=== PATIENT | female | born 1935 | race Caucasian/White ===

== ENCOUNTER 2020-02-26 16:44 | Inpatient (IN) | payer MEDICARE ==
--- NOTE | 2020-02-26 17:45 | RAD ---
EXAM: Single view of the chest HISTORY: Nausea and malaise for one month. Weakness COMPARISON: None FINDINGS: Single view of the chest shows a normal sized cardiomediastinal silhouette. Atheroscleroti c calcifications are seen in the aorta. Biapical pleural thickening is present. Calcified granulomas project over the left thorax. No pleural effusion or infiltrate are seen. Degenerative krystyna nges are seen in the spine. Cholecystectomy clips are seen. IMPRESSION: No evidence of acute cardiopulmonary disease
[2020-02-26 17:54] LABS: #Eosinphils 0.1 thou/uL (0.0-0.7); #Lymphocytes 0.9 thou/uL (1.20-3.40); #Monocytes 1.2 thou/uL (0.11-0.59); #Neutrophils 10.1 thou/uL (1.40-6.50); %Basophils 0.1 % (0.0-1.0); %Eosinophils 0.9 % (0.0-10.0); %Lymphocytes 7.1 % (21.0-51.0); %Monocytes 10.1 % (0.0-10.0); %Neutrophils 81.8 % (42.0-75.0); Hemoglobin 14.4 g/dL (12.0-16.0); Mean Corpuscular HGB CONC 32.6 g/dL (32.0-36.0); Mean Corpuscular Hemoglobin 28.6 pg (27.0-31.0); Mean Corpuscular Volume 87.7 fL (78.0-98.0); Mean Platelet Volume 8.8 fL (7.4-10.4); Platelet Count 313 thou/uL (130-400); RBC Distribution Width 13.6 % (11.5-14.5); Red Blood Cell (RBC) Count 5.03 mill/uL (4.20-5.40); White Blood Cell (WBC) Count 12.3 thou/uL (4.8-10.8)
[2020-02-26 18:18] LABS: ALT (SGPT) 80 U/L (8-55); AST (SGOT) 79 U/L (5-34); Albumin 4.2 g/dL (3.4-4.8); Alkaline Phosphatase 108 U/L (40-110); Anion Gap 22 mmol/L (10-20); BUN (Urea Nitrogen) 74 mg/dL (9.8-20.1); Bilirubin, Total 1.1 mg/dL (0.2-1.2); Calc. Creatinine Clearance 0 mL/min (70-130); Carbon Dioxide 24 mmol/L (23-31); Chloride 93 mmol/L (98-107); Estimated GFR-MDRD 21; Globulin 3.6 g/dL (2.4-3.5); Glucose 153 mg/dL (83-110); Lipase 126 U/L (8-78); Potassium 5.9 mmol/L (3.5-5.1); Protein, Total 7.8 g/dL (6.0-8.3); Sodium 133 mmol/L (136-145)
[2020-02-26] MEDS ORDERED: Ondansetron PF 4 MG/2 ML Vial ONE (18:18)
[2020-02-26] MEDS ORDERED: Morphine 4 MG/ML VIAL ONE ×2 (18:18→19:57)
[2020-02-26 18:49] LABS: Base Excess-Venous 2.2 mmol/L (-2.0 to 3.0); Bicarbonate (HCO3v) 28.3 mmol/L (22.0-28.0); CO2 Tension (PvCO2) 47.7 mmHg (40.0-50.0); Calcium, Ionized 1.04 mmol/L (1.15-1.33); Chloride 95 mmol/L (98-107); Hemoglobin - Calc 16.5 g/dL (12.0-16.0); Potassium 6.1 mmol/L (3.5-5.1); Sodium 130 mmol/L (138-145); T. Carbon Dioxide 29.8 mmol/L (22.0-28.0); vO2 Saturation-calc 79.2 % (60.0-85.0)
[2020-02-26] MEDS ORDERED: Calcium Chloride 1 GM/10 ML Abboject SYRINGE ONE (19:36)
[2020-02-26] MEDS ORDERED: Insulin Regular 300 UNITS/3 ML VIAL ONE (19:43)
[2020-02-26] MEDS ORDERED: Dextrose 50% Abboject 50 ML SYRINGE ONE (19:44)
[2020-02-26] MEDS ORDERED: Ondansetron ODT 4 MG TAB ONE (19:44)
[2020-02-26] MEDS ORDERED: Sodium Bicarb 50 MEQ/50 ML VIAL ONE (19:44)
[2020-02-26] MEDS ORDERED: Calcium Gluconate 13.8 MEQ in Sodium Chloride 0.9% 100 ML IVPB SCH (19:45)
--- NOTE | 2020-02-26 19:55 | RAD ---
CHEST ONE VIEW: 02/26/20 HISTORY: Central line placement. COMPARISON: 02/26/20 at 5:36 p.m. FINDINGS: There is atherosclerosis of the aortic knob. Normal cardiac silhouette. Pulmonary vessels and hilum a re normal. Costophrenic angles are clear. No consolidation or mass. No acute osseous abnormalities. T here is a right sided internal jugular vascular catheter with the distal tip projecting over the righ t atrium. No pneumothorax. IMPRESSION: Interval placement of right sided internal jugular vascular catheter. No pneumothorax. POS: PPP
[2020-02-26] MEDS ORDERED: Cefepime 2 GM VIAL ONE (20:50)
[2020-02-26] MEDS ORDERED: Metoclopramide HCl 10 MG/2 ML VIAL ONE (21:17)
--- NOTE | 2020-02-26 21:19 | CT ---
ABDOMEN CT WITH CONTRAST PELVIC CT WITH CONTRAST 02/26/20 COMPARISON: None. HISTORY: Lower abdominal pain. Metastatic ovarian cancer. FINDINGS: Abdomen CT: Slightly complex right sided pleural effusion. Adjacent consolidation with atelectasis or pneumonia. Small focal opacity in the middle lobe with irregular margination measuring 0.8 cm. the lateral aspec t of this density has a somewhat more wedge shaped appearance. Focal infiltrate may be present. Normal heart size. No significant pericardial fluid. There is atherosclerosis of the visualized aorta . Limited evaluation of the solid organs by the lack of IV contrast. Left hepatic lobe cyst measures 3. 4 x 2.9 cm. Grossly, no abnormality with regards to the spleen and pancreas. There is mild hypertrophy of both adrenal glands. Gallbladder is surgically absent. Hyperdensity in the left and right renal pelvis likely represents renal calculi, measuring 0.5 cm naeem aterally. No evidence of obstructive uropathy. Gallbladder is surgically absent. There is stippling of the anterior left and right abdominal mesentery compatible with omental seeding . There is no mesenteric free air or free fluid. . Limited evaluation of the alimentary canal by the lack of oral contrast. Limited evaluation due to la ck of oral contrast. Multiple normal caliber small bowel loops. Normal ileocecal junction. Colon is d ecompressed. Anterior abdominal wall. There is an anterior abdominal right lower quadrant diverting ileostomy. No rmal appearing ileocecal junction. Normal caliber retrocecal appendix. PELVIC CT: Stranding of the presacral fat and the fat within the pelvis. Uterus is surgically absent. Urinary bladder is unremarkable. No lytic or blastic lesions in the osseous structures. IMPRESSION: 1. 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 2. No evidence of bowel obstruction. There is a diverting ileostomy in the right lower quadrant. 3. Bilateral nonobstructing intrarenal calculi. 4. Right sided pleural effusion, complex with right lower lobe and middle lobe atelectasis/pneum onia. Results of the study discussed with Dr. Banegas 02/26/20 at 8:46 p.m. Code CR POS: PPP
[2020-02-26 21:24] LABS: Bilirubin Negative (Negative); Blood, Urine Negative (Negative); Clarity Turbid (Clear); Glucose, Urine (Dipstick) 100 mg/dL (Negative); Ketone, Urine Negative (Negative); Leukocyte 25 Leu/uL (Negative); Nitrite Negative (Negative); Protein, Urine (Dipstick) 30 mg/dL (Neg-Trace); RBC/HPF 0-3 HPF (0-3); Renal Epithelial 0-3 HPF (None Seen); Specific Gravity, Urine 1.022 (1.002-1.036); Squamous Epithelial 0-3 HPF (0-3); Transitional Epithelial 0-3 HPF (None Seen); Urobilinogen Normal mg/dL (Less than 2); pH, Urine 5.5 (5.0-9.0)
[2020-02-26] MEDS ORDERED: Vancomycin 1 GM/200 ML BAG ONE (21:26)
[2020-02-26 21:32] LABS: Bacteria/HPF Rare-Few HPF (None Seen); Yeast-Budding Rare HPF (None Seen); Yeast-Hyphae Rare HPF (None Seen)
[2020-02-26] MEDS ORDERED: Communication Order-Pharmacy FS PRN (22:09)
--- NOTE | 2020-02-26 22:24 | PDOC.BPN ---
- Brief Progress Note Encounter Date: 02/26/20 [id number] HP
[2020-02-27] MEDS: Sodium Chloride 0.9% 1,000 ML IV SCH ×4 (00:20→18:08)
[2020-02-27] MEDS ORDERED: Morphine 2 MG/ML VIAL ONE (01:48)
[2020-02-27] MEDS: Morphine 2 MG/ML VIAL SLOW IVP PRN ×3 (02:15→17:00)
--- NOTE | 2020-02-27 03:32 | HP ---
CHIEF COMPLAINT: Weakness, decreased oral intake, and dehydration. HISTORY OF PRESENT ILLNESS: Ms. Gutiérrez is an 84-year-old female who was with a history of metastatic ovarian cancer, who has been recently admitted to [facility] in [place] where her Assistant Manager Trainee/Onc surgeon is present with dehydration, very poor appetite, generalized weakness, not able to get up out of bed. The patient had a recent partial colectomy with colostomy in the right lower quadrant. She has had issues with resistant leaking of bowel contents onto the abdominal wall, which caused significant erythema and discomfort. The patient also had complications of intraabdominal infection. The niece is at the bedside cannot elaborate further on this, she did have a wound VAC to her abdominal wall for a couple of weeks. The niece did not think that this was some type of fistula. No reported fever, cough, chest pain, or shortness of breath. The patient had significant malaise and generalized weakness. The surgery was sometime in January, she was transferred back there in the end of January and was admitted for 7 days according to the family and was discharged at the end of January. No other significant past medical history. Workup in the emergency room, the patient appears dehydrated, sodium is low at 133, potassium is elevated at 5.9, anion gap is elevated at 22, BUN is 74, creatinine is 2.24. Lactic acid is elevated at 0.4. Chest x-ray, no acute finding. The ED physician inserted the right-sided internal jugular vascular catheter, no pneumothorax. Imaging studies of the abdomen and pelvis showed stippling of abdominal mesentry/omentum compatible with omental carcinomatosis. No signs of bowel obstruction. There is a diverting ileostomy in the right lower quadrant. There are bilateral nonobstructing intrarenal calculi. There is a right-sided pleural effusion complex with right lower lobe and middle lobe atelectasis. The patient started on IV antibiotics, medical treatment for hyperkalemia was initiated in the ED, the patient started on IV fluids. The patient is being admitted to hospital for further management. PAST MEDICAL HISTORY: Ovarian cancer, metastatic. PAST SURGICAL HISTORY: 1. Ileostomy with complications and wound VAC. 2. Bilateral oophorectomy. 3. Hysterectomy. SOCIAL HISTORY: Currently lives with niece, denies alcohol use, denies drug use, unknown smoking history. FAMILY HISTORY: Reviewed and noncontributory. HOME MEDICATIONS: Please see home medication reconciliation form for updated medications. ALLERGIES: NO KNOWN ALLERGIES. REVIEW OF SYSTEMS: Review of 14 systems negative except what is mentioned in history of present illness. PHYSICAL EXAMINATION: GENERAL: The patient is awake, alert, appears malnourished. VITAL SIGNS: Blood pressure is 134/74, pulse is 78, respiratory rate is 21, temperature is 98, oxygen saturation 97% on room air. HEAD AND NECK: Normocephalic, atraumatic. NECK: Supple. No JVD. CHEST: Fair bilateral air entry. HEART: S1, S2. Regular. ABDOMEN: Soft. There is ileostomy in the lower abdomen with surrounding erythema and some drainage. Bowel sounds present. NEUROLOGIC: Awake, alert, moving extremities. PSYCHIATRIC: Unable to assess. EXTREMITIES: No clubbing or cyanosis. LABORATORY DATA: As mentioned above in the history of present illness. IMAGING STUDIES: As mentioned above in the history of present illness. ASSESSMENT AND PLAN: 1. Acute kidney injury. 2. Acute hyperkalemia. 3. Hyponatremia. 4. Ovarian cancer with metastasis. 5. Ileostomy status. 6. Dehydration. 7. Malnutrition. PLAN: 1. Admit. 2. Telemetry monitoring. 3. Septic workup in the ED. 4. IV antibiotic. 5. Medical management for hyperkalemia started in the ED, monitor electrolytes. 6. Monitor kidney function and urine output. 7. Wound care/ileostomy care. 8. May need surgical consultation regarding ileostomy status and management, family requesting. 9. IV fluids. 10. Hydration. 11. Reconcile home medications. 12. DVT prophylaxis as appropriate. 13. Expected length of stay, 2 midnights or more. 14. The case discussed with the patient's family and ED physician. Job ID: [id number]
[2020-02-27 06:43] VITALS: BMI 24.5
[2020-02-27 06:57] LABS: #Eosinphils 0.4 thou/uL (0.0-0.7); #Monocytes 1.5 thou/uL (0.11-0.59); #Neutrophils 9.4 thou/uL (1.40-6.50); %Basophils 0.2 % (0.0-1.0); %Eosinophils 3.1 % (0.0-10.0); %Lymphocytes 7.8 % (21.0-51.0); %Monocytes 11.9 % (0.0-10.0); %Neutrophils 76.9 % (42.0-75.0); Hemoglobin 11.6 g/dL (12.0-16.0); Mean Corpuscular HGB CONC 32.3 g/dL (32.0-36.0); Mean Corpuscular Hemoglobin 28.6 pg (27.0-31.0); Mean Corpuscular Volume 88.4 fL (78.0-98.0); Mean Platelet Volume 9.1 fL (7.4-10.4); Platelet Count 264 thou/uL (130-400); RBC Distribution Width 13.7 % (11.5-14.5); Red Blood Cell (RBC) Count 4.07 mill/uL (4.20-5.40); White Blood Cell (WBC) Count 12.3 thou/uL (4.8-10.8)
[2020-02-27 07:17] LABS: ALT (SGPT) 66 U/L (8-55); AST (SGOT) 70 U/L (5-34); Albumin 3.2 g/dL (3.4-4.8); Alkaline Phosphatase 83 U/L (40-110); Anion Gap 15 mmol/L (10-20); BUN (Urea Nitrogen) 61 mg/dL (9.8-20.1); Calc. Creatinine Clearance 34 mL/min (70-130); Calcium 9.4 mg/dL (7.8-10.44); Carbon Dioxide 26 mmol/L (23-31); Chloride 101 mmol/L (98-107); Estimated GFR-MDRD 33; Globulin 3.3 g/dL (2.4-3.5); Glucose 101 mg/dL (83-110); Protein, Total 6.5 g/dL (6.0-8.3); Sodium 137 mmol/L (136-145)
[2020-02-27] MEDS ORDERED: Famotidine/PF 20 mg/2ml Vial ONE (08:52)
[2020-02-27] MEDS ORDERED: Nystatin Powder 15 GM BOT TOP PRN (09:30)
[2020-02-27] MEDS ORDERED: Morphine 4 MG/ML VIAL ONE (09:45)
[2020-02-27] MEDS: Heparin 5,000 UNITS/ML VIAL SC SCH ×2 (10:00→20:31)
[2020-02-27] MEDS: Famotidine/PF 20 mg/2ml Vial SLOW IVP SCH (10:00)
[2020-02-27] MEDS ORDERED: Piperacillin/Tazobactam 3.375 GM VIAL ONE (11:54)
[2020-02-27] MEDS ORDERED: Piperacillin/Tazobactam 3.375 GM in Sodium Chloride 0.9% 100 ML IVPB SCH (12:00)
[2020-02-27 15:33] LABS: SARS-CoV-2 MS2 Positive; SARS-CoV-2 N Gene Negative; SARS-CoV-2 S Gene Negative; SARS-CoV-2 by NAA Not Detected (NotDetected); SARS-CoV-2 orf1ab Negative
[2020-02-27] MEDS: Piperacillin/Tazobactam 2.25 GM in Sodium Chloride 0.9% 100 ML IVPB SCH (18:08)
[2020-02-27] MEDS ORDERED: Cefepime 1 GM in Sodium Chloride 0.9% 100 ML IVPB SCH (21:00)
[2020-02-27 21:23] LABS: Vancomycin, Trough 7.2 ug/mL
[2020-02-27] MEDS ORDERED: Vancomycin 1 GM in Premix Bag 1 BAG IVPB SCH (21:30)
[2020-02-27] MEDS ORDERED: Vancomycin HCl 1 GM in Sodium Chloride 0.9% 250 ML 300 ML IVPB SCH (22:00)
[2020-02-28] MEDS: Piperacillin/Tazobactam 2.25 GM in Sodium Chloride 0.9% 100 ML IVPB SCH ×4 (00:17→17:04)
[2020-02-28] MEDS: Sodium Chloride 0.9% 1,000 ML IV SCH ×2 (05:08→14:45)
[2020-02-28 06:42] LABS: #Eosinphils 0.6 thou/uL (0.0-0.7); #Lymphocytes 0.8 thou/uL (1.20-3.40); %Basophils 0.3 % (0.0-1.0); %Eosinophils 6.9 % (0.0-10.0); %Lymphocytes 9.9 % (21.0-51.0); %Monocytes 11.5 % (0.0-10.0); %Neutrophils 71.4 % (42.0-75.0); Hemoglobin 11.2 g/dL (12.0-16.0); Mean Corpuscular HGB CONC 31.9 g/dL (32.0-36.0); Mean Corpuscular Hemoglobin 29.1 pg (27.0-31.0); Mean Corpuscular Volume 91.2 fL (78.0-98.0); Mean Platelet Volume 8.7 fL (7.4-10.4); Platelet Count 215 thou/uL (130-400); RBC Distribution Width 13.5 % (11.5-14.5); Red Blood Cell (RBC) Count 3.85 mill/uL (4.20-5.40); White Blood Cell (WBC) Count 8.4 thou/uL (4.8-10.8)
[2020-02-28 07:07] LABS: Anion Gap 12 mmol/L (10-20); BUN (Urea Nitrogen) 42 mg/dL (9.8-20.1); Calc. Creatinine Clearance 40 mL/min (70-130); Calcium 8.3 mg/dL (7.8-10.44); Carbon Dioxide 25 mmol/L (23-31); Chloride 106 mmol/L (98-107); Estimated GFR-MDRD 41; Glucose 96 mg/dL (83-110); Potassium 4.1 mmol/L (3.5-5.1); Sodium 139 mmol/L (136-145)
[2020-02-28] MEDS: Famotidine/PF 20 mg/2ml Vial SLOW IVP SCH (08:10)
[2020-02-28] MEDS: Heparin 5,000 UNITS/ML VIAL SC SCH ×3 (08:11→22:12)
[2020-02-28] MEDS: Morphine 2 MG/ML VIAL SLOW IVP PRN ×2 (11:01→22:12)
--- NOTE | 2020-02-28 16:14 | PDOC.HOSPP ---
- Subjective Encounter Date: 02/28/20 - Objective Vital Signs & Weight: Vital Signs (12 hours) Temp Pulse Resp BP BP Pulse Ox 02/28/20 15:18 97.2 F L 89 15 103/58 L 98 02/28/20 12:00 97.6 F 86 16 106/61 96 02/28/20 08:00 97 02/28/20 06:59 97.4 F L 78 16 117/69 97 Weight Weight 166 lb 0.129 oz I&O: 02/27/20 02/28/20 02/29/20 06:59 06:59 06:59 Intake Total 2430 Output Total 450 Balance 1980 Result Diagrams: 02/28/20 06:02 02/28/20 06:02 Hospitalist ROS - Medication Medications: Active Medications Generic Name Dose Route Start Last Admin Trade Name Freq PRN Reason Stop Dose Admin Famotidine 20 mg 02/27/20 09:00 02/28/20 08:10 Famotidine/Pf 20 Mg/2ml Vial SLOW IVP 20 mg DAILY WALTER Administration Heparin Sodium (Porcine) 5,000 units 02/27/20 09:00 02/28/20 08:55 Heparin 5,000 Units/Ml Vial SC 5,000 units BID WALTER Administration Sodium Chloride 1,000 mls @ 100 mls/hr 02/26/20 22:15 02/28/20 14:45 Normal Saline 0.9% IV 1,000 mls .Q10H WALTER Administration Piperacillin Sod/Tazobactam 100 mls @ 200 mls/hr 02/27/20 18:00 02/28/20 11:01 Sod 2.25 gm/ Sodium Chloride IVPB 100 mls Q6HR WALTER Administration Morphine Sulfate 2 mg 02/27/20 01:46 02/28/20 11:01 Morphine 2 Mg/Ml Vial SLOW IVP 2 mg Q4H PRN Administration Moderate to Severe Pain (6-10) Nystatin 0 gm 02/27/20 09:30 02/27/20 11:37 Nystatin Powder 15 Gm Bot TOP 1 applic TID PRN Administration Topical Irritations - Exam General Appearance: awake alert ENT: normocephalic atraumatic Neck: supple, no JVD Heart: RRR Respiratory: normal chest expansion, no tachypnea Gastrointestinal: soft Gastrointestinal - other findings: Ileostomy is present Extremities: no cyanosis Skin: normal turgor Neurological: cranial nerve grossly intact, no focal deficits Hosp A/P (1) Pneumonia Code(s): J18.9 - PNEUMONIA, UNSPECIFIED ORGANISM Status: Acute (2) Ileostomy present Code(s): Z93.2 - ILEOSTOMY STATUS Status: Acute (3) Pleural effusion Code(s): J90 - PLEURAL EFFUSION, NOT ELSEWHERE CLASSIFIED Status: Acute (4) History of ovarian cancer Status: Acute (5) Abdominal carcinomatosis Code(s): C76.2 - MALIGNANT NEOPLASM OF ABDOMEN Status: Acute - Plan Patient denies any significant shortness of breath today. Ultrasound-guided thoracentesis was not completed due to inadequate amount of pleural fluid. We will continue empiric management with broad-spectrum IV antibiotics. The patient and her family have concerns about the ileostomy and requesting surgical consultation. The ostomy site appears to be retracted and CT scan of the abdomen did not reveal any obstruction. I will discuss the case with the surgeon supervisory air intercept controller.
[2020-02-28] MEDS ORDERED: Vancomycin 1 GM in Premix Bag 1 BAG IVPB SCH (22:00)
[2020-02-29] MEDS: Piperacillin/Tazobactam 2.25 GM in Sodium Chloride 0.9% 100 ML IVPB SCH ×3 (00:29→11:21)
[2020-02-29] MEDS: Sodium Chloride 0.9% 1,000 ML IV SCH ×2 (00:31→06:26)
[2020-02-29 06:15] LABS: #Eosinphils 0.7 thou/uL (0.0-0.7); #Lymphocytes 1.1 thou/uL (1.20-3.40); #Monocytes 0.9 thou/uL (0.11-0.59); #Neutrophils 5.9 thou/uL (1.40-6.50); %Basophils 0.3 % (0.0-1.0); %Eosinophils 7.6 % (0.0-10.0); %Lymphocytes 12.9 % (21.0-51.0); %Monocytes 10.4 % (0.0-10.0); %Neutrophils 68.8 % (42.0-75.0); Hemoglobin 10.4 g/dL (12.0-16.0); Mean Corpuscular HGB CONC 32.4 g/dL (32.0-36.0); Mean Corpuscular Hemoglobin 29.2 pg (27.0-31.0); Mean Platelet Volume 8.5 fL (7.4-10.4); Platelet Count 217 thou/uL (130-400); RBC Distribution Width 13.4 % (11.5-14.5); Red Blood Cell (RBC) Count 3.57 mill/uL (4.20-5.40); White Blood Cell (WBC) Count 8.6 thou/uL (4.8-10.8)
[2020-02-29 06:34] LABS: Anion Gap 12 mmol/L (10-20); BUN (Urea Nitrogen) 28 mg/dL (9.8-20.1); Calc. Creatinine Clearance 52 mL/min (70-130); Calcium 7.9 mg/dL (7.8-10.44); Carbon Dioxide 22 mmol/L (23-31); Chloride 108 mmol/L (98-107); Estimated GFR-MDRD 54; Glucose 94 mg/dL (83-110); Potassium 3.8 mmol/L (3.5-5.1); Sodium 138 mmol/L (136-145)
[2020-02-29] MEDS: Famotidine/PF 20 mg/2ml Vial SLOW IVP SCH (07:57)
[2020-02-29] MEDS: Heparin 5,000 UNITS/ML VIAL SC SCH (07:58)
[2020-02-29] MEDS: Morphine 2 MG/ML VIAL SLOW IVP PRN (12:09)
[2020-02-29 15:38] VITALS: BP 109/65; TEMP 98
--- NOTE | 2020-03-01 02:42 | DIS ---
DATE OF ADMISSION: 02/26/2020 DATE OF DISCHARGE: 02/29/2020 DISCHARGE DIAGNOSES: 1. Pneumonia. 2. Pleural effusion. 3. Abdominal carcinomatosis. 4. Ovarian cancer. 5. Ileostomy care. DISCHARGE MEDICATIONS: Levofloxacin 750 mg orally daily for 5 days. HISTORY OF PRESENT ILLNESS AND HOSPITAL COURSE: The patient is an 84-year-old female with past medical history of ovarian cancer with metastasis, who is status post partial colectomy with an ileostomy in the abdominal wall. She presented with complaints of abdominal wall erythema and discomfort and complained of leaking from her ostomy bag. The patient was found to be slightly acidotic and septic. Her chest, abdomen, and pelvis were scanned and which showed presence of right lower lobe pneumonia with effusion in addition to abdominal carcinomatosis. The patient was started on IV antibiotics and fluids, which led to improvement in her sepsis and resolution of her acute kidney injury that was present on admission. The condition of her ostomy was discussed with surgical team and they recommended against any surgical intervention at this time. Follow up with a certified ostomy nurse was recommended and this will be arranged prior to discharge. Job ID: [id number] [facility]
== END 2020-02-29 16:59 | disposition home health service (06) | DRG 871 ==
LOC: ERS 16:44 → ERHOLD 20:54 → T4-B 02-27 14:02
PROVIDERS: ADMIT Internal Medicine; ATTEND Internal Medicine
DX: A41.9 Sepsis, unspecified organism (principal); J18.9 Pneumonia, unspecified organism; N17.9 Acute kidney failure, unspecified; J98.11 Atelectasis; J90 Pleural effusion, not elsewhere classified; E46 Unspecified protein-calorie malnutrition; C56.9 Malignant neoplasm of unspecified ovary; E87.1 Hypo-osmolality and hyponatremia; C80.0 Disseminated malignant neoplasm, unspecified; E86.0 Dehydration; Z93.2 Ileostomy status; Z90.710 Acquired absence of both cervix and uterus; Z90.722 Acquired absence of ovaries, bilateral; Z79.899 Other long term (current) drug therapy; Z85.43 Personal history of malignant neoplasm of ovary; Z20.828 Contact with and (suspected) exposure to other viral communicable diseases
CPT/HCPCS: 36415; 36556; 51701; 71045; 74176; 80048; 80053; 80202; 81003; 81015; 82330; 82803; 83605; 83690; 84484; 85025; 87040; 87086; 87635; 90471; 90732; 93005; 96365; 96366; 96367; 96368; 96375; 96376; G0009; J0692; J1644; J1815; J2001; J2270; J2405; J2543; J2765; J3370; J3490; Q0162; S0028; U0003